=== PATIENT | male | born 1950 | race Caucasian/White ===

== ENCOUNTER 2016-06-23 08:09 | Inpatient (IN) | payer OTHER ==
[2016-06-16 13:31] LABS: HEMATOCRIT 39.8 % (40.0-51.0); HEMOGLOBIN 13.4 g/dL (13.6-17.8)
[2016-06-16 13:48] LABS: CALCIUM, SERUM 9.5 MG/DL (8.5-10.4); CHLORIDE, SERUM 102 MMOL/L (96-112); CO2 (CARBON DIOXIDE) 31 MMOL/L (24-34); GFR AFRICAN AMERICAN 35 ML/MIN (>=60); GFR NON AFRICAN AMERICAN 30 ML/MIN (>=60); GLUCOSE, SERUM 111 MG/DL (60-99); SODIUM, SERUM 141 MMOL/L (135-148)
[2016-06-16 13:49] LABS: BUN (BLOOD UREA NITROGEN) 21 MG/DL (6-23); CREATININE 2.23 MG/DL (0.70-1.30); POTASSIUM, SERUM 3.9 MMOL/L (3.5-5.3)
--- NOTE | ~2016-06-23 | DS ---
Discharge Summary [facility] [address] [place]. [address] NAME: TASHA BELL : 54 STATUS : DIS IN PAT#: [id number] AGE: 65 ADM/REG DATE : 06/23/16 MR#: [id number] REPORT SERV DATE: 07/07/16 DICTATED BY: SHANNAN DOWLING II DATE: 07/06/16 REPORT STATUS : Draft TRANSCRIBED BY: MODJulio DATE: 07/06/16 Data Collection from hospitalization DISCHARGE DIAGNOSES: 1. History of L4-S1 fusion approximately in 2004. 2. Left lower extremity radiculopathy secondary to severe spinal stenosis at L2-3 and L3- 4. 3. Lumbar stenosis at L2-3 and L3-4 with severe adjacent segment degeneration. 4. Hypertension. 5. Osteoarthritis. 6. Gout. 7. Hard of hearing. 8. History of stroke. CONSULTATIONS: Hudson Pineda APN PROCEDURES PERFORMED: Hardware removal at L4-L5; posterior facetectomy and laminectomy at L2 3 and L3-4; interbody arthrodesis at L2-3 and L3-4; application of prosthetic devices at L2- 3 and L3-4; posterolateral arthrodesis at L2-3 and L3-4; posterior segmental instrumentation at L2-3 and L3-4; use of local autograft, allograft substitute, and bone morphogenic protein; use of microscope and stereotactic spinal imaging on 06/23/2016. PATHOLOGY: Bone and tissue and old hardware lumbar spine - fragments of hyaline cartilage with degenerative changes. Fibroadipose tissue, dense fibrous connective tissue, skeletal muscle, and bone present. Orthopedic hardware - see gross description. MEDICATIONS: Zyloprim 300 mg twice a day, Norvasc 10 mg daily, aspirin 81 mg daily, Valium 5 mg every six hours as needed, docusate sodium 100 mg twice a day, hydrochlorothiazide 12.5 mg daily, Prinivil 40 mg daily, MS Contin 60 mg every 12 hours, and Percocet 10/325 one tablet every four hours as needed. CONDITION AT DISCHARGE: Stable. DISPOSITION: The patient was discharged home on a regular diet with activities as instructed. HOSPITAL COURSE: This is a 65-year-old man who is being complaining of lumbar spine-related symptoms. The symptoms are located in the low back with radiation into the left leg with associated burning, numbness, and tingling. The patient has a history of previous L4-S1 fusion in approximately 2004. He has left lower extremity radiculopathy secondary to severe spinal stenosis at L2-3 and L3-4. He has lumbar kyphosis at L2-3 and L3-4 with severe adjacent segment degeneration. Treatment options were discussed and it was elected to proceed with surgical intervention. He was admitted to the hospital at this time for further evaluation and treatment. Upon admission, he was taken to the operating room where he underwent the above-mentioned procedure. He tolerated this well, and there were no complications. On postop day #1, he complained of severe low back pain. We encouraged him to mobilize. He was evaluated by Discharge Summary [address] [address] NAME: TASHA BELL : 54 STATUS : DIS IN PAT#: [id number] AGE: 65 ADM/REG DATE : 06/23/16 MR#: [id number] REPORT SERV DATE: 07/07/16 DICTATED BY: SHANNAN DOWLING II DATE: 07/06/16 REPORT STATUS : Draft TRANSCRIBED BY: EDER DATE: 07/06/16 Physical Therapy. On postop day #2, he remained stable. He continued to progress. He did have an episode of ventricular tachycardia of which he was unaware. He was eager to go home. Discharge planning was performed. On 06/26/2016, the patient was seen by Hudson Pineda. The patient had six beats of PVCs during the night. He had no chest pain or palpitations. No further episodes were noticed. EKG revealed normal sinus rhythm. Troponins were negative. Potassium level was within normal limits. Discharge instructions were given. Due to his improved and stable condition, he was discharged home with the above stated instructions. Information collected by: Chioma Leon I submit the above information as my discharge summary. PURNIMA/EDER Shannan Dowling II, M.D. / [id number] CC: Thiago Fernandez II, WHITNEY L
--- NOTE | ~2016-06-23 | OP ---
Record Of Operation [facility] [address] [place]. [address] NAME: TASHA BELL : 54 STATUS : DIS IN PAT#: [id number] AGE: 65 ADM/REG DATE : 06/23/16 MR#: [id number] REPORT SERV DATE: 06/27/16 DICTATED BY: SHANNAN DOWLING II DATE: 06/27/16 REPORT STATUS : Draft TRANSCRIBED BY: MODL DATE: 06/27/16 DATE OF PROCEDURE: 06/23/2016 PREOPERATIVE DIAGNOSES: 1. History of L4-S1 fusion, approximately 2004. 2. Left lower extremity radiculopathy secondary to severe spinal stenosis at L2-3 and L3- 4. 3. Lumbar kyphosis at L2-3 and L3-4 with severe adjacent segment degeneration. POSTOPERATIVE DIAGNOSES: 1. History of L4-S1 fusion, approximately 2004. 2. Left lower extremity radiculopathy secondary to severe spinal stenosis at L2-3 and L3- 4. 3. Lumbar kyphosis at L2-3 and L3-4 with severe adjacent segment degeneration. PROCEDURE: 1. Hardware removal, L4-L5. 2. Posterior facetectomy and laminectomy at L2-3 and L3-4. 3. Interbody arthrodesis at L2-3 and L3-4. 4. Application of prosthetic devices at L2-3 and L3-4. 5. Posterolateral arthrodesis at L2-3 and L3-4. 6. Posterior segmental instrumentation at L2-3 and L3-4. 7. Use of local autograft, allograft substitute, and bone morphogenetic protein. 8. Use of the microscope and stereotactic spinal imaging. FLUIDS: 1800 mL LR. ESTIMATED BLOOD LOSS: 150 mL. DRAINS: One drain. COMPLICATIONS: None. ANTIBIOTIC: Preoperatively. IMPLANTS: Alpha-Allyssa. PREOPERATIVE HISTORY: This is a very friendly 65-year-old gentleman very well known to me from the past. He has done very well with a lumbar fusion and a cervical fusion. He has now developed severe stenosis and left lower extremity radiculopathy. We discussed the pros and cons of surgery, and he wished to proceed. DESCRIPTION OF PROCEDURE: After informed consent was obtained, the patient was brought to the operating room at his request and general anesthesia achieved. He was placed in the prone position and the back was prepped and draped in a sterile fashion. The iliac crest was chosen on the right for placement of the stereotactic pin. The intraoperative CT scan Record Of Operation [place] [id number] [facility] [place]. [address] NAME: TASHA BELL : 54 STATUS : DIS IN PAT#: [id number] AGE: 65 ADM/REG DATE : 06/23/16 MR#: [id number] REPORT SERV DATE: 06/27/16 DICTATED BY: SHANNAN DOWLING II DATE: 06/27/16 REPORT STATUS : Draft TRANSCRIBED BY: EDER DATE: 06/27/16 was completed and stereotactic guidance was used throughout the case. At this point, a lumbar incision was made on the left at L4-5. The hardware was now removed at L4-5. Next, we then placed a quadrant retractor at L2-3 and L3-4 and the transverse processes dissected upon. The microscope was now brought into place, and under microscopic visualization, the severe spinal stenosis was alleviated at L3-4 with the facetectomy and laminectomy. The [id number] decompression was achieved. The hypertrophic ligamentum flavum was removed. The dura was then well identified and well decompressed. Next, the L3-4 interbody arthrodesis was initiated with diskectomy and endplate preparation. The meaghan and the curettes and the pituitary rongeurs were used. The endplates were now identified as having punctate bleeding bone. At this point, the disk space was now treated with local autograft and the prosthetic device was then placed into the anterior column. We also placed a small amount of bone morphogenetic protein into the anterior column. At this point, the L2-3 level was treated in a similar manner with facetectomy and laminectomy through the unilateral approach. The L2 and L3 nerve roots were now acceptably decompressed. Next, the interbody arthrodesis was initiated with diskectomy and endplate preparation. The pituitary rongeurs and the Kerrison rongeurs were used and the area now was irrigated. At this point, the prosthetic device was placed at L2-3. We also then placed a small amount of bone morphogenetic protein into the anterior disk space. Next, the pedicle screws were then applied into L2, L3, and L4. On the right, we placed percutaneous screws. A repeat CT scan confirmed acceptable placement of the segmental instrumentation. At this point, the decortication was performed of the transverse processes of L2, L3, and L4. Local autograft, allograft substitute, and bone morphogenetic protein were placed along these decorticated surfaces. A deep drain was placed followed by standard closure, and the patient was then extubated and transferred to PACU in stable condition. EDIE/EDER Shannan Dowling II, M.D. / [id number] CC: Thiago Fernandez II, WHITNEY L
[~2016-06-23 08:09] MED LIST: ASAB PO; COLCH6 PO; DOESN'T KNOW MEDS; HYDROCHLOROT12.5 MG PO; LISINOPRIL40 MG PO; LYRICA100 MG PO; MEDROLPAK4 PO; MSCONTIN PO; MSIMMREL PO; NO HOME MEDS; NORV10 PO; PERCOCET1 TA2 PO; PLAVIX PO; PR25 PO; VYTORIN 10/20 T1 TAB PO; XODOL 10-300 T1 EACH PO; Z300 PO; ZANTAC150 MG PO; ZESTORETIC1 TA1 PO
[2016-06-26 07:53] LABS: HEMATOCRIT 36.3 % (40.0-51.0); MEAN CORPUS HGB CONC 33.1 g/dL (32.0-36.0); MEAN PLATELET VOLUME 10.6 fL (9.2-13.0); RBC DISTRIBUTION WIDTH 13.9 % (12.0-16.0); RED CELL COUNT 3.91 10/6/uL (4.7-6.1); WHITE BLOOD CELLS 15.1 10/3/uL (4.5-10.5)
[2016-06-26 07:56] LABS: MANUAL DIFF YES %; MEAN CORPUSCULAR HEMOGLOB 30.7 pg (26.0-34.0); MEAN CORPUSCULAR VOLUME 92.8 fL (80-100); PLATELET COUNT 227 10/3/uL (150-400)
[2016-06-26 08:07] LABS: BUN (BLOOD UREA NITROGEN) 21 MG/DL (6-23); CALCIUM, SERUM 9.8 MG/DL (8.5-10.4); CHLORIDE, SERUM 108 MMOL/L (96-112); CPK 288 U/L (0-200); POTASSIUM, SERUM 4.1 MMOL/L (3.5-5.3); SODIUM, SERUM 138 MMOL/L (135-148); TROPONIN I <0.02 NG/ML (<0.05)
[2016-06-26 08:08] LABS: CK-MB 2.3 NG/ML; CO2 (CARBON DIOXIDE) 20 MMOL/L (24-34); CREATININE 1.07 MG/DL (0.70-1.30); GFR AFRICAN AMERICAN 85 ML/MIN (>=60); GFR NON AFRICAN AMERICAN 73 ML/MIN (>=60); GLUCOSE, SERUM 81 MG/DL (60-99)
[2016-06-26 08:27] LABS: LYMPHOCYTES 28 %; LYMPHOCYTES ABSOLUTE (CALC) 4.23 10/3/uL (0.67-4.30); MONOCYTES 10 %; MONOCYTES ABSOLUTE (CALC) 1.51 10/3/uL (0.21-1.20); NEUTROPHILS ABSOLUTE (CALC) 9.36 10/3/uL (2.02-8.40); PLATELET ESTIMATE ADQ (ADEQUATE); RBC MORPHOLOGY NORM (NORMAL); SEGMENTED NEUTROPHIL (0) 62 %; TOTAL NUCLEATED CELLS 100
[2016-06-26] MEDS ORDERED: D.O.S.100 MG PO (16:26)
[2016-06-26] MEDS ORDERED: ASAB PO (16:27)
[2016-06-26] MEDS ORDERED: V5 PO (16:28)
[2016-06-26] MEDS ORDERED: MSCONT60 PO (16:29)
[2016-06-26] MEDS ORDERED: PERCOCET 10/3251 TAB PO (16:29)
[2016-08-05] MEDS ORDERED: MSCONTIN PO (17:22)
[2016-08-05] MEDS ORDERED: HYDROCHLOROT12.5 MG PO (17:23)
[2016-08-06] MEDS ORDERED: NORCO1 TAB PO (13:04)
[2016-08-06] MEDS ORDERED: HALF81 PO (14:22)
[2016-08-12] MEDS ORDERED: DURICEF PO (11:06)
[2016-08-12] MEDS ORDERED: Z100 PO (11:23)
[2016-08-12] MEDS ORDERED: COLCH6 PO (11:24)
[2016-09-07] MEDS ORDERED: HCTZ12.5 PO (23:01)
[2016-09-07] MEDS ORDERED: NORCO1 TAB PO (23:05)
[2016-09-07] MEDS ORDERED: NORV10 PO (23:05)
[2016-09-07] MEDS ORDERED: ASAB PO (23:06)
[2016-09-07] MEDS ORDERED: LISINOPRIL40 MG PO (23:06)
[2016-09-07] MEDS ORDERED: Z100 PO (23:06)
[2016-09-07] MEDS ORDERED: MSCONT60 PO (23:07)
[2016-09-07] MEDS ORDERED: DSS PO (23:11)
[2016-09-11] MEDS ORDERED: CEFADROXIL1 GM PO (14:03)
== END 2016-06-26 19:06 | disposition home or self-care (01) | DRG 460 ==
LOC: SDC/OF 08:09 → 1SO 16:38
PROVIDERS: Orthopaedic Surgery
PROC: 0SG10A1 (ICD-10-PCS; principal; 2016-06-23 09:45)
PROC: 0ST20ZZ Resection of Lumbar Vertebral Disc, Open Approach (ICD-10-PCS; 2016-06-23 09:45)
PROC: 0SP004Z Removal of Internal Fixation Device from Lumbar Vertebral Joint, Open Approach (ICD-10-PCS; 2016-06-23 09:45)
PROC: 4A11X4G Monitoring of Peripheral Nervous Electrical Activity, Intraoperative, External Approach (ICD-10-PCS; 2016-06-23 09:45)
DX: M51.16 Intervertebral disc disorders with radiculopathy, lumbar region (principal); I47.2 Ventricular tachycardia; M47.816 Spondylosis without myelopathy or radiculopathy, lumbar region; I10 Essential (primary) hypertension; M51.17 Intervertebral disc disorders with radiculopathy, lumbosacral region; I25.10 Atherosclerotic heart disease of native coronary artery without angina pectoris; K21.9 Gastro-esophageal reflux disease without esophagitis; Z79.899 Other long term (current) drug therapy; Z98.1 Arthrodesis status; Z86.73 Personal history of transient ischemic attack (TIA), and cerebral infarction without residual deficits
CPT/HCPCS: 71010; 80048; 82550; 82553; 82962; 83735; 84484; 85014; 85018; 85025; 87641; 88300; 88304; 88311; 93005; 97116-GP; 97162-GP; A9270-GY; C1713; C1768; C1769; J0690; J1170; J2250; J2405; J2710; J3010